=== PATIENT | female | born 1965 | race Two or more races ===

== ENCOUNTER 2025-05-08 17:53 | Inpatient (IN) | payer OTHER ==
[~2025-05-08] VITALS: Ht 149.9 cm; Wt 45.5 kg
--- NOTE | 2025-05-08 18:30 | ECG ---
[facility] Test Date: 2025-05-08 Test Time: 17:58:09 Pat Name: EDWARD ART Department: Room: 0271T Gender: F Industrial Relations Analyst: DUSTY : 1965 Requested By: ARIANA NEGRO Order Number: [id number] Reading MD: Jorge Aden Measurements Intervals [place] Rate: 83 P: 42 CT: 141 QRS: 72 QRSD: 82 T: 62 QT: 400 QTc: 470 Interpretive Statements Sinus rhythm Electronically Signed On 05-11-2025 9:42:17 PDT by Jorge Aden Please click the below link to view image of tracing.
--- NOTE | 2025-05-08 18:45 | DVH ---
CHEST RADIOGRAPH Indication: cp Technique: Single frontal view of the chest was obtained COMPARISON: None FINDINGS: Lines and Tubes: None Lungs: Clear Pleura: No effusion. No pneumothorax. Cardiomediastinal contours: Unremarkable Bones: Scoliosis IMPRESSION: No acute disease.
[2025-05-08 18:50] LABS: Hematocrit 30.9 % (36.0-46.0); Hemoglobin 10.1 g/dL (12.2-16.2); Mean Corpuscular Hemoglobin 28.4 pg (28.0-32.0); Mean Corpuscular Volume 87.0 fL (80.0-100.0); Nucleated Red Blood Cells % 0.0 %
[2025-05-08 19:10] LABS: Albumin 4.1 g/dL (3.2-4.8); Alkaline Phosphatase 73 U/L (46-116); Anion Gap 9 (5-15); BUN/Creatinine Ratio 19.8 (10.0-20.0); Blood Urea Nitrogen 16 mg/dL (9-23); Calcium 9.1 mg/dL (8.7-10.4); Carbon Dioxide 26 mmol/L (20-31); Chloride 106 mmol/L (98-107); Potassium 4.2 mmol/L (3.5-5.1); Sodium 141 mmol/L (136-145); Total Protein 6.9 g/dL (5.7-8.2)
[2025-05-08 19:11] LABS: Alanine Aminotransferase 9 U/L (7-40); Bilirubin, Total 0.2 mg/dL (0.2-1.0); Glucose 109 mg/dL (74-106)
--- NOTE | 2025-05-08 20:40 | ECG ---
[facility] Test Date: 2025-05-08 Test Time: 20:38:39 Pat Name: EDWARD ART Department: [facility] ED Patient ID: [id number] Room: 0271T Gender: F First Aid Trainer: eboni : 1965 Requested By: ARIANA NEGRO Order Number: [id number] Reading MD: Jorge Aden Measurements Intervals [place] Rate: 73 P: 82 RI: 140 QRS: 76 QRSD: 81 T: 67 QT: 414 QTc: 457 Interpretive Statements Sinus rhythm Probable anteroseptal infarct, old Electronically Signed On 05-11-2025 9:43:00 PDT by Jorge Aden Please click the below link to view image of tracing.
--- NOTE | 2025-05-09 07:52 | ED.PDOC ---
HPI Comments 59 year old female presents to the ED via EMS with a chief complaint of chest pain onset 4 days. Patient states she has been experiencing chest pain for the past 4 days. Patient believes she might be going through ETOH withdraws, last drink was about 4 days ago. PMHx MS, HTN. Denies shortness of breath, dizziness, fever, chills, headache, blurred vision, numbness/tingling. No other symptoms or modifying factors present at this time. Chief Complaint: Chest Pain Time Seen by MD: 07:40 Reviewed Notes: Medications, Allergies Allergies: Coded Allergies: NO KNOWN ALLERGIES (Unverified , 05/08/25) Information Source: Patient, Emergency Med Personnel Mode of Arrival: EMS Severity: Moderate Timing: Days Duration: Since onset Prehospital treatment: None Location: Chest (L) Radiation: No Radiation Quality: Sharp Onset: At Rest Cardiac Risk Factors: HTN PE Risk Factors: None History of: None Modifying Factors: Nothing Past Medical History PAST MEDICAL HISTORY: HTN Past Medical History (Other): MS Surgical History: Denies all surgeries DIRECTOR OF CONVENTION SERVICES History: No Pertinent DIRECTOR OF CONVENTION SERVICES History Family History Family History: Reviewed,noncontributory to illness, No family hx of Cancer, No family hx of DM, No family hx of Heart radha, No family hx of HTN, No family hx ofKidney radha, No family hx of Liver radha, No family hx of Lung radha, No family hx of Stroke Social History Smoker: Non-Smoker Alcohol: Heavy Drugs: Denies Drug Use Lives In: Home Constitutional: denies: chills, diaphoresis, fatigue, fever, malaise, sweats, weakness, others EENTM: denies: blurred vision, double vision, ear bleeding, ear discharge, ear drainage, ear pain, ear ringing, eye pain, eye redness, hearing loss, mouth pain, mouth swelling, nasal discharge, nose bleeding, nose congestion, nose pain, photophobia, tearing, throat pain, throat swelling, voice changes, others Respiratory: denies: cough, hemoptysis, orthopnea, SOB at rest, shortness of breath, SOB with excertion, stridor, wheezing, others Cardiovascular: reports: chest pain; denies: dizzy spells, diaphoresis, Dyspnea on exertion, edema, irregular heart beat, left arm pain, lightheadedness, palpitations, PND, syncope, others Gastrointestinal: denies: abdomen distended, abdominal pain, blood streaked bowels, constipated, diarrhea, dysphagia, difficulty swallowing, hematemesis, melena, nausea, poor appetite, poor fluid intake, rectal bleeding, rectal pain, vomiting, others Genitourinary: denies: abnormal vagina bleeding, burning, dyspareunia, dysuria, flank pain, frequency, hematuria, incontinence, pain, , vagina discharge, urgency, others Neurological: denies: dizziness, fainting, headache, left sided numbness, left sided weakness, numbness, paresthesia, pre-existing deficit, right sided numbness, right sided weakness, seizure, speech problems, tingling, tremors, weakness, others Musculoskeletal: denies: back pain, gout, joint pain, joint swelling, muscle pain, muscle stiffness, neck pain, others Integumetry: denies: bruises, change in color, change in hair/nails, dryness, laceration, lesions, lumps, rash, wounds, others Allergic/Immunocompromised: denies: Difficulty Healing, Frequent Infections, Hives, Itching, others Hematologic/Lymphatic: denies: anemia, blood clots, easy bleeding, easy bruising, swollen glands, others Endocrine: denies: excessive hunger, excessive sweating, excessive thirst, excessive urination, flushing, intolerance to cold, intolerance to heat, unexplained weight gain, unexplained weight loss, others Psychiatric: denies: anxiety, bipolar disorder, depression, hopeless, panic disorder, schizophrenia, sleepless, suicidal, others All Other Systems: Reviewed and Negative Physical Exam General Appearance: Moderate Distress, Thin HEENT: Normal ENT Inspection, Pharynx Normal, TMs Normal Neck: Full Range of Motion, Non-Tender, Normal, Normal Inspection Respiratory: Chest Non-Tender, Lungs Clear, No Accessory Muscle Use, No Respiratory Distress, Normal Breath Sounds Cardiovascular: No Edema, No JVD, No Murmur, No Gallop, Normal Peripheral Pulses, Regular Rate/Rhythm Breast Exam: Deferred Gastrointestinal: No Organomegaly, Non Tender, No Pulsatile Mass, Normal Bowel Sounds, Soft Genitalia: Deferred Pelvic: Deferred Rectal: Deferred Extremities: No calf tenderness, Normal capillary refill, Normal range of motion, Non-tender, No pedal edema Musculoskeletal : Apperance: Normal Neurologic: Alert, label paster II-XII nml as Tested, No Motor Deficits, Normal Affect, Normal Mood, No Sensory Deficits Cerebellar Function: NOT DONE Reflexes: NOT DONE Skin: Dry, Normal Color, Warm Peripheral Pulses: 3+ Radial (R), 3+ Radial (L) Lymphatic: No Adenopathy Was a procedure done? Was a procedure done?: No CP Differential Dx Differential Diagnosis: A-fib, A-Flutter, Angina, Anxiety / Panic Attack, Atrial Dysrhythmia, Electrolyte Disorder X-Ray, Labs, Meds, VS Vital Signs Date Time Temp Pulse Resp B/P (MAP) Pulse Ox O2 Delivery O2 Flow Rate FiO2 05/08/25 20:38 73 05/08/25 18:04 97.7 81 18 145/91 97.7 05/08/25 17:58 83 Lab Test 05/08/25 19:14 05/08/25 18:30 Range/Units Troponin I High Sensitivity 6 7 </=34 ng/L White Blood Count 7.5 4.4-10.8 10^3/uL Red Blood Count 3.55 L 4.0-5.20 10^6/uL Hemoglobin 10.1 L 12.2-16.2 g/dL Hematocrit 30.9 L 36.0-46.0 % Mean Corpuscular Volume 87.0 80.0-100.0 fL Mean Corpuscular Hemoglobin 28.4 28.0-32.0 pg Mean Corpuscular Hemoglobin Concent 32.6 32.0-36.0 g/dL Red Cell Distribution Width 17.4 H 11.8-14.3 % Platelet Count 416 140-450 10^3/uL Mean Platelet Volume 9.1 6.9-10.8 fL Neutrophils (%) (Auto) 67.9 37.0-80.0 % Lymphocytes (%) (Auto) 19.2 10.0-50.0 % Monocytes (%) (Auto) 10.4 0.0-12.0 % Eosinophils (%) (Auto) 1.9 0.0-7.0 % Basophils (%) (Auto) 0.6 0.0-2.0 % Neutrophils # (Auto) 5.1 1.6-8.6 10 ^3/uL Lymphocytes # (Auto) 1.4 0.4-5.4 10 ^3/uL Monocytes # (Auto) 0.8 0-1.3 10 ^3/uL Eosinophils # (Auto) 0.1 0-0.8 10 ^3/uL Basophils # (Auto) 0 0-0.2 10 ^3/uL Nucleated Red Blood Cells 0.0 % Sodium Level 141 136-145 mmol/L Potassium Level 4.2 3.5-5.1 mmol/L Chloride Level 106 98-107 mmol/L Carbon Dioxide Level 26 20-31 mmol/L Anion Gap 9 5-15 Blood Urea Nitrogen 16 9-23 mg/dL Creatinine 0.81 0.550-1.02 mg/dL Glomerular Filtration Rate Calc 84 >90 mL/min BUN/Creatinine Ratio 19.8 10.0-20.0 Serum Glucose 109 H 74-106 mg/dL Calcium Level 9.1 8.7-10.4 mg/dL Total Bilirubin 0.2 0.2-1.0 mg/dL Aspartate Amino Transferase (AST) 23 13-40 U/L Alanine Aminotransferase (ALT) 9 7-40 U/L Alkaline Phosphatase 73 46-116 U/L B-Type Natriuretic Peptide 69.66 0-100 pg/mL Total Protein 6.9 5.7-8.2 g/dL Albumin 4.1 3.2-4.8 g/dL [place] [id number] Ph: [phone] DIAGNOSTIC IMAGING Diagnostic Imaging Report : [id number] Signed PATIENT: EDWARD ART ACCT: [id number] UNIT: [id number] : 1965 LOC: ER ROOM / BED: / AGE / SEX: 59 / F ADM STATUS: REG ER SERVICE 04 ORDERING PHYSICIAN: ARIANA COLLIER MD PROCEDURE(s): CXRP - CHEST PORTABLE REASON: cp ORDER NUMBER(s): [id number], ACCESSION NUMBER(s): [id number] CHEST RADIOGRAPH Indication: cp Technique: Single frontal view of the chest was obtained COMPARISON: None FINDINGS: Lines and Tubes: None Lungs: Clear Pleura: No effusion. No pneumothorax. Cardiomediastinal contours: Unremarkable Bones: Scoliosis IMPRESSION: No acute disease. ATED BY: BRODERICK MORAELS MD DICTATED DATE/TIME: 05/08/251842 SIGNED BY: BRODERICK MORALES MD SIGNED DATE/TIME: 05/08/251842 CC: Patient alert. Complaining of chest pain. Vitals stable. Answering questions. Chest x-ray reviewed does not show any acute process. Was given aspirin. Was given nitro. She continues to have chest pain. Explained to the patient. Continue monitoring. Time of 1ST Reevaluation: 08:10 Reevaluation 1ST: Unchanged Patient Education/Counseling: Diagnosis, Treatment, Prognosis Family Education/Counseling: No Family Present SEPSIS Sepsis Screen Date sepsis recognized/suspect: May 08, 2025 Time Sepsis recognized/suspect: 1800 Recent Procedure: No On Antibiotic Therapy: No Respiratory Rate >20: No Heart Rate >90: No Temp<36 C (96.8 F) or >38.3 C: No SBP <90 or MAP <65 mmHG: No New Acute Mental Status Change: No Is the patient on CPAP, BIPAP,: No Physician Orders Chest Portable (05/08/25 18:05) Electrocardigram (05/08/25 21:05) Vital Signs Date Time Temp Pulse Resp B/P (MAP) Pulse Ox O2 Delivery O2 Flow Rate FiO2 05/08/25 20:38 73 05/08/25 18:04 97.7 81 18 145/91 97.7 05/08/25 17:58 83 Laboratory Tests Test 05/08/25 18:30 White Blood Count 7.5 10^3/uL (4.4-10.8) Departure 1 Departure Time of Disposition: 07:55 Impression: Primary Impression: Chest pain of unknown etiology Disposition: ADMITTED INPATIENT Admit to: Med Surg Condition: Guarded Critical Care Note Critical Care Time?: No Stability Stability form required: No Heart Score Heart Score: Heart Score Response (Comments) Value History Slightly Suspicious 0 EKG Normal 0 Age 45-64 1 Risk Factors >3 or Hx ASHD 2 Troponin Normal limit 0 Total 3 I personally scribed for COSTA SZYMANSKI MD ([email or web address]) on 05/09/25 at 07:52. Electronically submitted by Kasia Elizabeth ([email or web address]). COSTA SZYMANSKI MD May 09, 2025 07:52
[2025-05-09] MEDS ORDERED: DOCUSATE SOD 100 MG CAP PO PRN (09:45)
[2025-05-09] MEDS ORDERED: NITROGLYCERIN 0.4 MG SL TAB SL PRN (09:45)
[2025-05-09] MEDS ORDERED: MORPHINE SULFATE INJ 2 MG/ml SYRG IV PRN ×2 (09:45)
[2025-05-09] MEDS: NITROGLYCERIN 0.4 MG SL TAB SL ONE ×2 (09:55→09:56)
[2025-05-09 10:19] LABS: Hematocrit 34.4 % (36.0-46.0); Hemoglobin 11.0 g/dL (12.2-16.2); Mean Corpuscular Hemoglobin 28.1 pg (28.0-32.0); Mean Corpuscular Volume 88.1 fL (80.0-100.0); Nucleated Red Blood Cells % 0.0 %
[2025-05-09 10:23] LABS: Chloride 105 mmol/L (98-107); Potassium 4.3 mmol/L (3.5-5.1); Sodium 139 mmol/L (136-145)
[2025-05-09 10:24] LABS: Anion Gap 8 (5-15); Calcium 9.4 mg/dL (8.7-10.4); Carbon Dioxide 26 mmol/L (20-31)
[2025-05-09 10:29] LABS: Triglycerides 75 mg/dL (< 150)
[2025-05-09 10:30] LABS: BUN/Creatinine Ratio 15.8 (10.0-20.0); Blood Urea Nitrogen 12 mg/dL (9-23)
[2025-05-09] MEDS: hydrALAZINE HCL 20 MG/ML VL IV ONE (10:30)
[2025-05-09 10:31] LABS: Cholesterol 173 mg/dL (< 200)
--- NOTE | 2025-05-09 10:33 | DVHHPRES ---
History of Present Illness Resident Creating Document: ARTHUR BERMUDEZ RESIDENT History of Present Illness Alondra Chisholm is a 59-year-old female with past medical history of hypertension. The patient came to the ED with chief complain of 4 days of intermittent substernal chest pain, 5/10, pressure-like, that improves with rest and leaning forward; irradiated to both arms, associated with fatigue. The patient also reports she has been drinking for the past month approximate 1 L of alcohol beverage, but stopped 4 days ago due to the chest pain, 1 day ago she started feeling shivery and headache 03/03. Yesterday, the chest pain increase on intensity 03/03, this prompt her visit to the ED. The patient denies fever, chills, abdominal pain, nausea or vomit. On the ED the patient was giving nitroglycerin SL and the chest pain improved /. The patient will be admitted for further assessment and management. Please note: The patient is from [facility], she mistakenly took the wrong bus to [facility], she wants to communicate with family, a social consult was placed. Cardiovascular: HTN Past Surgical History: Other (Gastric by pass. ) Family History: None Smoke: <1 pack per day ALCOHOL: heavy (The patient reports she drinks approximate 175ml per day since 10 years ago. ) Drugs: Marijuana, Other (The patient reports she uses others drugs sometimes when she drinks. ) Lives: Friends Review of Systems Constitutional: No: Fever, Chills, Sweats, Weakness, Malaise, Other Eyes: No: Pain, Vision change, Conjunctivae inflammation, Eyelid inflammation, Other, Redness ENT: No: Ear pain, Ear discharge, Nose pain, Nose discharge, Nose congestion, Mouth pain, Mouth swelling, Throat pain, Throat swelling, Other Respiratory: No: Cough, Dry, Shortness of breath, SOB with excertion, Wheezing, Hemoptysis, Pleuritic Pain, Sputum, Wheezing, Other Cardiovascular: Chest Pain; No: Palpitations, Orthopnea, Paroxysmal Noc. Dyspnea, Edema, Lt Headedness, Other Gastrointestinal: Constipation; No: Nausea, Vomiting, Abdominal Pain, Diarrhea, Melena, Hematochezia, Other Genitourinary: No Dysuria, No Frequency, No Incontinence, No Hematuria, No Retention, No Other Musculoskeletal: No: other, neck pain, shoulder pain, arm pain, back pain, hand pain, leg pain, foot pain Skin: No: Rash, Lesions, Jaundice, Bruising, Other Neurological: Other (Anxiety, tremor); No: Weakness, Numbness, Incoordination, Change in speech, Confusion, Seizures Allergies: Coded Allergies: NO KNOWN ALLERGIES (Unverified , 05/08/25) Medications Current Medications Medications Dose Ordered Sig/Radha Route Start Time Stop Time Status Last Admin Dose Admin Docusate Sodium 100 mg BIDPRN PRN PO 05/09/25 09:45 UNV Acetaminophen/ Hydrocodone Bitart 1 tab Q4HP PRN PO 05/09/25 09:45 UNV Exam Vital Signs Vital Signs Date Time Temp Pulse Resp B/P (MAP) Pulse Ox O2 Delivery O2 Flow Rate FiO2 05/09/25 09:47 86 18 100 Room Air 05/09/25 09:47 98.7 180/87 (118) 98.7 General Appearance: Alert, Oriented X3, Cooperative, No acute distress HEENT: Atraumatic, PERRLA Respiratory: Clear to auscultation, Normal air movement Cardiovascular: Regular rate, Normal S1, Normal S2 Abdominal: Normal bowel sounds, Soft, No tenderness, No masses Extremities: No clubbing, No cyanosis, No edema, Normal pulses, No tenderness/swelling Skin: No rashes, No breakdown, No significant lesion Neuro: Normal speech, Strength at 5/5 X4 ext, Normal tone, Sensation intact Psych/Mental Status: Mental status NL, Other (Anxious) Labs/Xrays Labs Test 05/08/25 19:14 05/08/25 18:30 Range/Units Troponin I High Sensitivity 6 </=34 ng/L White Blood Count 7.5 4.4-10.8 10^3/uL Red Blood Count 3.55 L 4.0-5.20 10^6/uL Hemoglobin 10.1 L 12.2-16.2 g/dL Hematocrit 30.9 L 36.0-46.0 % Mean Corpuscular Volume 87.0 80.0-100.0 fL Mean Corpuscular Hemoglobin 28.4 28.0-32.0 pg Mean Corpuscular Hemoglobin Concent 32.6 32.0-36.0 g/dL Red Cell Distribution Width 17.4 H 11.8-14.3 % Platelet Count 416 140-450 10^3/uL Mean Platelet Volume 9.1 6.9-10.8 fL Neutrophils (%) (Auto) 67.9 37.0-80.0 % Lymphocytes (%) (Auto) 19.2 10.0-50.0 % Monocytes (%) (Auto) 10.4 0.0-12.0 % Eosinophils (%) (Auto) 1.9 0.0-7.0 % Basophils (%) (Auto) 0.6 0.0-2.0 % Neutrophils # (Auto) 5.1 1.6-8.6 10 ^3/uL Lymphocytes # (Auto) 1.4 0.4-5.4 10 ^3/uL Monocytes # (Auto) 0.8 0-1.3 10 ^3/uL Eosinophils # (Auto) 0.1 0-0.8 10 ^3/uL Basophils # (Auto) 0 0-0.2 10 ^3/uL Nucleated Red Blood Cells 0.0 % Sodium Level 141 136-145 mmol/L Potassium Level 4.2 3.5-5.1 mmol/L Chloride Level 106 98-107 mmol/L Carbon Dioxide Level 26 20-31 mmol/L Anion Gap 9 5-15 Blood Urea Nitrogen 16 9-23 mg/dL Creatinine 0.81 0.550-1.02 mg/dL Glomerular Filtration Rate Calc 84 >90 mL/min BUN/Creatinine Ratio 19.8 10.0-20.0 Serum Glucose 109 H 74-106 mg/dL Calcium Level 9.1 8.7-10.4 mg/dL Total Bilirubin 0.2 0.2-1.0 mg/dL Aspartate Amino Transferase (AST) 23 13-40 U/L Alanine Aminotransferase (ALT) 9 7-40 U/L Alkaline Phosphatase 73 46-116 U/L B-Type Natriuretic Peptide 69.66 0-100 pg/mL Total Protein 6.9 5.7-8.2 g/dL Albumin 4.1 3.2-4.8 g/dL SEPSIS Sepsis Screen Date sepsis recognized/suspect: May 08, 2025 Time Sepsis recognized/suspect: 1800 Recent Procedure: No On Antibiotic Therapy: No Respiratory Rate >20: No Heart Rate >90: No Temp<36 C (96.8 F) or >38.3 C: No SBP <90 or MAP <65 mmHG: No New Acute Mental Status Change: No Is the patient on CPAP, BIPAP,: No Physician Orders Admit (05/09/25 09:36) Code Status (05/09/25:36) Vital Signs .PER UNIT PROTOCOL (05/09/25:36) Review Orders With Adm. (05/09/25 09:36) Bedside Commode (05/09/25 09:36) Docusate Sodium Capsule (Colace Capsule) (05/09/25 09:45) Notify Md Of Changes From Base (05/09/25 09:36) Advance Directive (05/09/25:36) Basic Metabolic Panel (05/09/25:36) Urinalysis (05/09/25:36) Complete Blood Count (05/09/25:36) Lipid Panel (05/09/25:36) Patient Condition (05/09/25 09:36) Allergies (05/09/25 09:36) Hydrocodone-Acet 5/325mg Tab ([place] 5/32 (05/09/25 09:45) Drug Screen (05/09/25 09:36) Morphine Sulfate Injection (05/09/25 09:45) Nitroglycerin Sublingual (Ntrostat Subli (05/09/25 09:45) Morphine Sulfate Injection (05/09/25 09:45) Stat Ekg For Chest Pain (05/09/25 09:36) Notify Md Of Changes From Base (05/09/25 09:36) Burring Machine Operator For 24 Hours (05/09/25 09:36) Rhythm Strips Once Every Shift (05/09/25 09:36) Banana Bag D5w (05/09/25 18:00) Cardiac Diet-2gna,Lofat,Lochol (05/09/25 Lunch) Sequential Compression Device (05/09/25 09:36) * Environmental Management Specialist Consult (05/09/25 ) Vital Signs Date Time Temp Pulse Resp B/P (MAP) Pulse Ox O2 Delivery O2 Flow Rate FiO2 05/09/25 09:47 86 18 100 Room Air 05/09/25 09:47 98.7 86 17 180/87 (118) 100 98.7 Assessment/Plan Assessment/Plan #Chest pain, rule out ACS EKG Chest X-ray Ap portable Troponins BNP, CBC, CMP, TSH, lipid panel. Morphine 2mg IV Aspirin 325mg po once, then: aspirin 81mg po qd Nitroglycerin 0.4 mg (SL Q5min prn for chest pain) Admit Telemetry Cardiac Consult Cardiac diet #Alcohol withdrawal syndrome CIWAS score 5 Banana bag, affter complition follow with Thiamine po and folic acid po. UDS #Hypertensive urgency Hydralazine 10mg IV #Essential hypertension Lisinopril 40mg po qd Amlodipine 5mg po qd #Polysubstance use disorder. Counseling about cessation. #Smoker < 10 cigarettes per day. Counseling about cessation >10min Cardiac diet DVT prophylaxis- ambulating. PUD prophylaxis Protonics. Goals of care discussed with the patient > 35 min. Discussed plan of care with Dr. Briggs Code status: Full code PCP: Dr. Lemos ( [facility]) Plan discussed with: Patient, the patient agrees with the admission plan. Plan discussed with: Patient My Orders Orders - ARTHUR BERMUDEZ RESIDENT Procedure Category Date Status Time Admit ADMIT 05/09/25 Transmitted 09:36 Code Status CODE 05/09/25 Transmitted 09:36 Vital Signs [facility] 05/09/25 In Process 09:36 Review Orders With [facility] 05/09/25 In Process Adm. 09:36 Bedside Commode [facility] 05/09/25 In Process 09:36 Docusate Sodium [facility] 05/09/25 Logged Capsule (Colace 09:45 Notify Md Of Changes [facility] 05/09/25 In Process From Base 09:36 Advance Directive [facility] 05/09/25 In Process 09:36 Basic Metabolic Panel LAB 05/09/25 Logged 09:36 Urinalysis LAB 05/09/25 Logged 09:36 Complete Blood Count LAB 05/09/25 Logged 09:36 Lipid Panel LAB 05/09/25 Logged 09:36 Patient Condition ORDERS 05/09/25 Transmitted 09:36 Allergies [facility] 05/09/25 In Process 09:36 Hydrocodone-Acet [facility] 05/09/25 Logged 5/325mg Tab ([place] 09:45 Drug Screen LAB 05/09/25 Logged 09:36 Morphine Sulfate [facility] 05/09/25 Logged Injection 09:45 Nitroglycerin [facility] 05/09/25 Logged Sublingual (Ntrostat 09:45 Morphine Sulfate [facility] 05/09/25 Transmitted Injection 09:45 Stat Ekg For Chest [facility] 05/09/25 In Process Pain 09:36 Notify Md Of Changes SHARIF 05/09/25 In Process From Base 09:36 Burring Machine Operator For [facility] 05/09/25 In Process 24 Hours 09:36 Rhythm Strips Once [facility] 05/09/25 In Process Every Shift 09:36 Banana Bag D5w PHA 05/09/25 Transmitted 18:00 Cardiac DIET 05/09/25 Transmitted Diet-2gna,Lofat,Lochol Lunch Sequential [facility] 05/09/25 In Process Compression Device 09:36 * Environmental Management Specialist CONS 05/09/25 Transmitted Consult Date of Service: May 09, 2025 Billing Provider: THOMAS BRIGGS MD Common Visit Codes: 14851-ERNAXMP INP/OBS CARE (HIGH) Secondary Visit Codes: 58287-[id number] CHNG SMOKING >10MIN, [id number] CARE PLAN 30 MINUTES ARTHUR BERMUDEZ RESIDENT May 09, 2025 10:33
[2025-05-09 11:09] LABS: Glucose 136 mg/dL (74-106); HDL Cholesterol 66 mg/dL (40-59)
[2025-05-09 13:30] VITALS: BP 157/96; PULSE 75; RESP 18; TEMP 97.3; O2SAT 100
--- NOTE | 2025-05-09 13:51 | DVHCONRES ---
Date Seen: May 09, 2025 Resident Creating Document: JOSIE GALLARDO RESIDENT Referring Physician ARTHUR BERMUDEZ RESIDENT Reason for Consultation Unstable angina History of Present Illness 59-year-old female presented to the ED with substernal chest pain (5/10), radiating to both arms, improving with rest and leaning forward. She has a history of heavy alcohol use (?1 L/day for past month, stopped 4 days ago) and subsequently developed shivering, tremors, headache (7/10), and anxiety, consistent with alcohol withdrawal. Pain intensity increased to 7/10 but improved with sublingual nitroglycerin. Currently pain-free in ED. No history of CAD, stents, or cardiac surgeries. Family history significant for stroke and myocardial infarction in mother. Brief Progress Summary * Chest pain has resolved in the ED with nitroglycerin. * Serial troponins negative (7 ? 6 ng/L, within normal). * BNP 69 pg/mL not suggestive of decompensated heart failure. * CXR: No acute cardiopulmonary process. * EKGs: Two tracings both show sinus rhythm, One EKG notes possible old anteroseptal infarct, but no acute ischemic changes. * Labs: Electrolytes normal; Cr 0.76, GFR 91. Hb 11.0 (mild anemia). Lipids: LDL 101, HDL 66 (high, protective). HbA1c 5.8. * Assessment: No objective evidence of acute coronary syndrome. Symptoms are most consistent with alcohol withdrawal/anxiety-related chest pain. Past Medical History Hypertension, alcohol use disorder. Past Surgical History Gastric bypass. No cardiac surgeries or interventions. Social History Heavy alcohol use (stopped 4 days ago), <1 pack/day smoking, occasional marijuana use. Allergies: Coded Allergies: NO KNOWN ALLERGIES (Unverified , 05/08/25) Current Medications Current Medications Medications (Trade) Dose Ordered Sig/Radha Route PRN Reason Start Time Stop Time Status Last Admin Docusate Sodium (Colace Capsule) 100 mg BIDPRN PRN PO FOR CONSTIPATION 05/09/25 09:45 Acetaminophen/ Hydrocodone Bitart ([place] 5/325MG Tab) 1 tab Q4HP PRN PO MODERATE PAIN (4-6 PAIN SCALE) 05/09/25 09:45 Morphine Sulfate 2 mg Q4HPRN PRN IV SEVERE PAIN (7-10 PAIN SCALE) 05/09/25 09:45 Nitroglycerin (Ntrostat Sublingual) 0.4 mg Q5MINP PRN SL FOR CHEST PAIN 05/09/25 09:45 Morphine Sulfate 2 mg Q30M PRN IV FOR CHEST PAIN 05/09/25 09:45 Folic Acid 1 mg/ Multivitamins 10 ml/Magnesium Sulfate 8 meq/ Thiamine HCl 100 mg/Dextrose 1,013.2 ml @ 125.001 mls/hr DAILY@1800 INJ 05/09/25 18:00 Amlodipine Besylate (Norvasc Tablet) 5 mg DAILY PO 05/10/25 10:00 Lisinopril (Zestril Tablet) 40 mg DAILY PO 05/10/25 10:00 Pantoprazole Sodium (Protonix Tablet) 40 mg DAILY PO 05/10/25 10:00 Aspirin 81 mg DAILY PO 05/10/25 10:00 Review of Systems * Positive: Chest pain (resolved), palpitations/anxiety during withdrawal. * Negative: Dyspnea, orthopnea, PND, edema, syncope, dizziness. Vital Signs Vital Signs Date Time Temp Pulse Resp B/P (MAP) Pulse Ox O2 Delivery O2 Flow Rate FiO2 05/09/25 10:36 160/82 05/09/25 09:47 86 18 100 Room Air 05/09/25 09:47 98.7 98.7 Physical Exam * General: Anxious but alert, no acute distress. * Vital signs: Stable. * CV: Regular rate and rhythm, normal S1/S2, no murmurs/rubs/gallops. No JVD, no peripheral edema. * Resp: Clear breath sounds bilaterally. * Extremities: No cyanosis, clubbing, or edema Labs/Diagnostic Data Labs Test 05/09/25 09:55 05/08/25 19:14 05/08/25 18:30 Range/Units White Blood Count 5.9 4.4-10.8 10^3/uL Red Blood Count 3.90 L 4.0-5.20 10^6/uL Hemoglobin 11.0 L 12.2-16.2 g/dL Hematocrit 34.4 #L 36.0-46.0 % Mean Corpuscular Volume 88.1 80.0-100.0 fL Mean Corpuscular Hemoglobin 28.1 28.0-32.0 pg Mean Corpuscular Hemoglobin Concent 31.9 L 32.0-36.0 g/dL Red Cell Distribution Width 18.4 H 11.8-14.3 % Platelet Count 423 140-450 10^3/uL Mean Platelet Volume 9.0 6.9-10.8 fL Neutrophils (%) (Auto) 71.4 37.0-80.0 % Lymphocytes (%) (Auto) 16.0 10.0-50.0 % Monocytes (%) (Auto) 10.5 0.0-12.0 % Eosinophils (%) (Auto) 1.4 0.0-7.0 % Basophils (%) (Auto) 0.7 0.0-2.0 % Neutrophils # (Auto) 4.2 1.6-8.6 10 ^3/uL Lymphocytes # (Auto) 1.0 0.4-5.4 10 ^3/uL Monocytes # (Auto) 0.6 0-1.3 10 ^3/uL Eosinophils # (Auto) 0.1 0-0.8 10 ^3/uL Basophils # (Auto) 0 0-0.2 10 ^3/uL Nucleated Red Blood Cells 0.0 % Sodium Level 139 136-145 mmol/L Potassium Level 4.3 3.5-5.1 mmol/L Chloride Level 105 98-107 mmol/L Carbon Dioxide Level 26 20-31 mmol/L Anion Gap 8 5-15 Blood Urea Nitrogen 12 9-23 mg/dL Creatinine 0.76 0.550-1.02 mg/dL Glomerular Filtration Rate Calc 91 >90 mL/min BUN/Creatinine Ratio 15.8 10.0-20.0 Serum Glucose 136 H 74-106 mg/dL Hemoglobin A1c 5.8 H <5.7 % A1C Calcium Level 9.4 8.7-10.4 mg/dL Triglycerides Level 75 < 150 mg/dL Cholesterol Level 173 < 200 mg/dL LDL Cholesterol 101 H < 100 mg/dL HDL Cholesterol 66 H 40-59 mg/dL Thyroid Stimulating Hormone (TSH) 1.42 0.55-4.78 uIU/mL Troponin I High Sensitivity 6 </=34 ng/L Total Bilirubin 0.2 0.2-1.0 mg/dL Aspartate Amino Transferase (AST) 23 13-40 U/L Alanine Aminotransferase (ALT) 9 7-40 U/L Alkaline Phosphatase 73 46-116 U/L B-Type Natriuretic Peptide 69.66 0-100 pg/mL Total Protein 6.9 5.7-8.2 g/dL Albumin 4.1 3.2-4.8 g/dL Assessment 1. Chest Pain resolved * Likely secondary to alcohol withdrawal/anxiety. * ACS ruled out: negative serial troponins, EKG without acute ischemia, normal BNP. * CXR normal, no signs of heart failure. * Low-intermediate risk by HEART score. 2. 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 3. Hypertension controlled on current regimen. 4. Mild anemia (Hgb 11.0) not cardiogenic but relevant to overall risk profile. Plan/Recommendation Plan Cardiovascular * No evidence of ACS. ordered an echo. * Continue home antihypertensives (amlodipine, lisinopril) and ASA 81 mg. * Recommend outpatient stress testing i * Maintain K > 4.0, Mg > 2.0 given QTc borderline prolonged (470 ms). Neurology/Psych (withdrawal-related chest pain) * Supportive management for alcohol withdrawal per primary team (CIWA protocol, benzodiazepines as indicated). Hematology * Mild anemia monitor, but no cardiology intervention at this time. Preventive / Risk Modification * Bacteriology Teacher regarding alcohol cessation and tobacco cessation. * Recommend lipid optimization Final Impression * Chest pain likely secondary to anxiety and alcohol withdrawal. * ACS ruled out with negative troponins, normal BNP, stable EKGs, and normal CXR . Case discussed in detail with the attending physician, including the clinical presentation, diagnostic workup, and comprehensive management plan. The patient was present for the discussion and demonstrated understanding of her condition and the proposed plan. Plan discussed with: Patient Visit Coding Cardiology RES Date of Service: May 09, 2025 Billing Provider: JAYMIE CHONG MD Cardiology Common Codes: [id number] INP/OBS CARE (High) JOSIE GALLARDO RESIDENT May 09, 2025 13:51
[2025-05-09] MEDS ORDERED: FURO20TA3 PO (14:18)
[2025-05-09] MEDS ORDERED: OMEP-448 (14:18)
[2025-05-09] MEDS ORDERED: AMLO1TAB22 PO (14:18)
[2025-05-09] MEDS ORDERED: LISI40TA16 PO (14:18)
[2025-05-09 18:47] VITALS: BP 144/90; PULSE 94; TEMP 98.5; O2SAT 97
[2025-05-09 21:00] VITALS: BP 145/85; PULSE 78; RESP 14; TEMP 97.5; O2SAT 99
[2025-05-09 23:23] LABS: Urine Protein, UAD Negative (Negative)
[2025-05-09 23:32] LABS: Cannabinoid Screen, Urine Neg (NEGATIVE); Phencyclidine Screen, Urine Pos (NEGATIVE)
[2025-05-09 23:35] LABS: Amphetamine Screen, Urine Neg (NEGATIVE); Barbiturate Scree,Urine Neg (NEGATIVE); Benzodiazephine Screen, Urine Pos (NEGATIVE); Cocaine Screen, Urine Neg (NEGATIVE); Opiate Scree,Urine Neg (NEGATIVE)
[2025-05-10] VITALS (9 sets, daily range): BP systolic 111–153; BP diastolic 64–92; PULSE 70–90; RESP 17–20; TEMP 97.4–97.9; O2SAT 98–100
[2025-05-10] MEDS: FOLIC ACID 1 MG, MULTIPLE VITAMIN 10 ML, MAGNESIUM SULF SDV 50% 8 MEQ, THIAMINE INJ 100... INJ SCH (00:02)
[2025-05-10 06:10] LABS: Hematocrit 30.8 % (36.0-46.0); Hemoglobin 10.0 g/dL (12.2-16.2); Mean Corpuscular Hemoglobin 28.2 pg (28.0-32.0); Mean Corpuscular Volume 86.6 fL (80.0-100.0); Nucleated Red Blood Cells % 0.1 %
[2025-05-10 06:23] LABS: Alkaline Phosphatase 64 U/L (46-116); Anion Gap 10 (5-15); Calcium 8.7 mg/dL (8.7-10.4); Carbon Dioxide 25 mmol/L (20-31); Chloride 105 mmol/L (98-107); Glucose 90 mg/dL (74-106); Potassium 4.5 mmol/L (3.5-5.1); Sodium 140 mmol/L (136-145)
[2025-05-10 06:24] LABS: BUN/Creatinine Ratio 16.9 (10.0-20.0); Blood Urea Nitrogen 15 mg/dL (9-23); Total Protein 6.4 g/dL (5.7-8.2)
[2025-05-10 06:25] LABS: Albumin 3.8 g/dL (3.2-4.8)
[2025-05-10 06:29] LABS: Alanine Aminotransferase < 9 U/L (7-40); Bilirubin, Total 0.3 mg/dL (0.2-1.0)
[2025-05-10] MEDS: LISINOPRIL 20 MG TAB PO SCH (08:58)
[2025-05-10] MEDS: PANTOPRAZOLE 40 MG TAB PO SCH (08:59)
--- NOTE | 2025-05-10 11:45 | DVHPN2 ---
Reviewed: Care Plan, H&P, Labs, Medications, Previous Orders, Radiology Changes from previous H/P or p: No Changes Eyes: No Pain, No Vision change, No Conjunctivae inflammation, No Eyelid inflammation, No Other, No Redness ENT: No Ear pain, No Ear discharge, No Nose pain, No Nose discharge, No Nose congestion, No Mouth pain, No Mouth swelling, No Throat pain, No Throat swelling, No Other Cardiovascular: Chest Pain; No Palpitations, No Orthopnea, No Paroxysmal Noc. Dyspnea, No Edema, No Lt Headedness, No Other Respiratory: No Cough, No Dry, No Shortness of breath, No SOB with excertion, No Wheezing, No Hemoptysis, No Pleuritic Pain, No Sputum, No Other Gastrointestinal: No Nausea, No Vomiting, No Abdominal Pain, No Diarrhea; C onstipation; No Melena, No Hematochezia, No Other Genitourinary: No Dysuria, No Frequency, No Incontinence, No Hematuria, No Retention, No Other Musculoskeletal: No other, No neck pain, No shoulder pain, No arm pain, No back pain, No hand pain, No leg pain, No foot pain Skin: No Rash, No Lesions, No Jaundice, No Bruising, No Other Objective Vitals Vital Signs Date Time Temp Pulse Resp B/P (MAP) Pulse Ox O2 Delivery O2 Flow Rate FiO2 05/10/25 09:00 97.9 90 18 150/92 (111) 98 97.9 05/10/25 07:30 Room Air* 0 21 Intake/Output Intake and Output 05/10/25 07:00 Intake Total 240 ml Balance 240 ml Intake Oral 240 ml # Voids 3 Medications Current Medications Medications Dose Ordered Sig/Radha Route Start Time Stop Time Status Last Admin Dose Admin Docusate Sodium 100 mg BIDPRN PRN PO 05/09/25 09:45 Acetaminophen/ Hydrocodone Bitart 1 tab Q4HP PRN PO 05/09/25 09:45 Morphine Sulfate 2 mg Q4HPRN PRN IV 05/09/25 09:45 Nitroglycerin 0.4 mg Q5MINP PRN SL 05/09/25 09:45 Morphine Sulfate 2 mg Q30M PRN IV 05/09/25 09:45 Folic Acid 1 mg/ Multivitamins 10 ml/Magnesium Sulfate 8 meq/ Thiamine HCl 100 mg/Dextrose 1,013.2 ml @ 125.001 mls/hr DAILY@1800 INJ 05/09/25 18:00 05/10/25 00:02 125.001 MLS/HR Amlodipine Besylate 5 mg DAILY PO 05/10/25 10:00 05/10/25 08:58 5 MG Lisinopril 40 mg DAILY PO 05/10/25 10:00 05/10/25 08:58 40 MG Pantoprazole Sodium 40 mg DAILY PO 05/10/25 10:00 05/10/25 08:59 40 MG Aspirin 81 mg DAILY PO 05/10/25 10:00 05/10/25 08:59 81 MG Laboratory Results Laboratory Tests 05/10/25 04:27 Chemistry Test 05/10/25 04:27 Albumin 3.8 g/dL (3.2-4.8) Calcium Level 8.7 mg/dL (8.7-10.4) Total Protein 6.4 g/dL (5.7-8.2) LFT Test 05/10/25 04:27 Alanine Aminotransferase (ALT) < 9 U/L (7-40) Alkaline Phosphatase 64 U/L (46-116) Aspartate Amino Transferase (AST) 19 U/L (13-40) Total Bilirubin 0.3 mg/dL (0.2-1.0) Urinalysis Test 05/09/25 23:04 Urine Color Colorless (Yellow) Urine Clarity Clear (Clear) Urine pH 6.5 (5.0-9.0) Urine Specific [place] 1.009 (1.001-1.035) Urine Protein Negative (Negative) Urine Ketones Negative (Negative) Urine Blood Negative /uL (Negative) Urine Nitrite Negative (Negative) Urine Bilirubin Negative (Negative) Urine Urobilinogen Normal mg/dL (Negative) Urine Leukocyte Esterase Negative /uL (Negative) Urine RBC None seen /hpf (0 - 4) Urine Microscopic WBC < 1 /HPF (0-5) Urine Squamous Epithelial Cells Few /hpf (<5) Urine Bacteria None seen /hpf (None Seen) Urine Glucose Normal mg/dL (Normal) Labs and/or images reviewed: Labs reviewed by me, Image(s) reviewed by me Assessment/Plan Assessment/Plan Noncardiac Chest Pain resolved Acute coronary syndrome ruled out normal troponin EKG normal normal BNP chest x- ray normal no signs of CHF Alcoholic withdrawal Hypertension Mild anemia Phencyclidine abuse counseling Plan discussed with: Patient Date of Service: May 10, 2025 Billing Provider: JANEY MARC MD Common Visit Codes: [id number] INP/OBS CARE(HIGH) JANEY MARC MD May 10, 2025 11:45
[2025-05-10] MEDS: HYDROcodone-ACET 5/325MG TAB PO PRN (12:34)
[2025-05-10] MEDS: SODIUM CHLORIDE 0.9% 1,000 ML IV SCH (12:36)
[2025-05-11 01:00] VITALS: BP 125/85; PULSE 74; RESP 16; TEMP 98.2; O2SAT 99
[2025-05-11 05:00] VITALS: BP 119/74; PULSE 60; RESP 17; TEMP 97.9; O2SAT 100
[2025-05-11 07:30] VITALS: PULSE 95; RESP 16; O2SAT 97
[2025-05-11 08:00] VITALS: PULSE 71
--- NOTE | 2025-05-11 08:45 | DVHSR ---
APPROVED REPORT EXAM: Two-dimensional and M-mode echocardiogram with Doppler and color Doppler. Blood Pressure: 144/87 mmHg INDICATION Eval cardiac function RISK FACTORS Height: 50, Weight: 100 DIMENSIONS LVDd (3.8-5.7cm)LA (2D)3.7 (1.9-4.0cm)Aortic Root (2.0-3.7cm) EF (%) (55-70%)Rt. Atrium3.6 (1.9-4.0cm)Asc. Aorta cm Mitral Valve MitralMitral Stenosis E wave0.82m/sMV Mean GR.3mmHg A wave1.30m/sMV Peak GR.6mmHg E/A ratio0.62D MVAcm2 DECEL [id number] 1/2 Ofci415ar IVRTmsDop MVA1.21cm2 Aortic Valve Aortic ValveAortic Stenosis V11.51m/[place] Mean GR.19mmHg V22.99m/[place] Peak GR.36mmHg Other Information Technically limited study due to body habitus, patient position and patient sensitive to touch. Conclusion HEAVILY CALCIFIED MITRAL LEAFLETS WITH DECREASED EXCURESION APPEAR LIKE MITRAL STENOSIS MV AREA 1.21 CM SQUARE HEAVILY CALCIFIED AORTIC LEAFLETS PEAK AORTIC GRADIENT IS 36 AND MEAN IS 19 MM OF HG MODERATE DEGREE LVH AND MODERATE DEGREE LV DIASTOLIC DYSFUNCTION LV EF IS 65% NO EFFUSION SUGGEST: ISAURO
[2025-05-11 09:00] VITALS: BP 100/83; PULSE 94; RESP 18; TEMP 98; O2SAT 97
--- NOTE | 2025-05-11 09:51 | DVHPN2 ---
Reviewed: Care Plan, H&P, Labs, Medications, Previous Orders, Radiology Changes from previous H/P or p: No Changes Eyes: No Pain, No Vision change, No Conjunctivae inflammation, No Eyelid inflammation, No Other, No Redness ENT: No Ear pain, No Ear discharge, No Nose pain, No Nose discharge, No Nose congestion, No Mouth pain, No Mouth swelling, No Throat pain, No Throat swelling, No Other Cardiovascular: Chest Pain; No Palpitations, No Orthopnea, No Paroxysmal Noc. Dyspnea, No Edema, No Lt Headedness, No Other Respiratory: No Cough, No Dry, No Shortness of breath, No SOB with excertion, No Wheezing, No Hemoptysis, No Pleuritic Pain, No Sputum, No Other Gastrointestinal: No Nausea, No Vomiting, No Abdominal Pain, No Diarrhea; C onstipation; No Melena, No Hematochezia, No Other Genitourinary: No Dysuria, No Frequency, No Incontinence, No Hematuria, No Retention, No Other Musculoskeletal: No other, No neck pain, No shoulder pain, No arm pain, No back pain, No hand pain, No leg pain, No foot pain Skin: No Rash, No Lesions, No Jaundice, No Bruising, No Other Objective Vitals Vital Signs Date Time Temp Pulse Resp B/P (MAP) Pulse Ox O2 Delivery O2 Flow Rate FiO2 05/11/25 09:20 100/83 05/11/25 05:00 97.9 60 17 100 97.9 05/10/25 20:00 Room Air* 0 21 Intake/Output Intake and Output 05/11/25 07:00 Intake Total 720 ml Balance 720 ml Intake Oral 720 ml # Voids 7 # Bowel Movements 1 Medications Current Medications Medications Dose Ordered Sig/Ardha Route Start Time Stop Time Status Last Admin Dose Admin Docusate Sodium 100 mg BIDPRN PRN PO 05/09/25 09:45 Acetaminophen/ Hydrocodone Bitart 1 tab Q4HP PRN PO 05/09/25 09:45 05/11/25 09:15 1 TAB Morphine Sulfate 2 mg Q4HPRN PRN IV 05/09/25 09:45 Nitroglycerin 0.4 mg Q5MINP PRN SL 05/09/25 09:45 Morphine Sulfate 2 mg Q30M PRN IV 05/09/25 09:45 Folic Acid 1 mg/ Multivitamins 10 ml/Magnesium Sulfate 8 meq/ Thiamine HCl 100 mg/Dextrose 1,013.2 ml @ 125.001 mls/hr DAILY@1800 INJ 05/09/25 18:00 05/10/25 18:00 125.001 MLS/HR Amlodipine Besylate 5 mg DAILY PO 05/10/25 10:00 05/10/25 08:58 5 MG Lisinopril 40 mg DAILY PO 05/10/25 10:00 05/10/25 08:58 40 MG Pantoprazole Sodium 40 mg DAILY PO 05/10/25 10:00 05/11/25 09:07 40 MG Aspirin 81 mg DAILY PO 05/10/25 10:00 05/11/25 09:09 81 MG Chlordiazepoxide HCl 50 mg Q12H PO 05/11/25 18:00 05/12/25 06:01 Chlordiazepoxide HCl 25 mg Q12H PO 05/12/25 18:00 05/13/25 06:01 Chlordiazepoxide HCl 25 mg Q24H PO 05/14/25 06:00 05/14/25 06:01 Sodium Chloride 1,000 ml @ 150 mls/hr Q6H40M IV 05/10/25 12:00 05/11/25 01:20 150 MLS/HR Laboratory Results Laboratory Tests 05/10/25 04:27 Urinalysis Test 05/09/25 23:04 Urine Color Colorless (Yellow) Urine Clarity Clear (Clear) Urine pH 6.5 (5.0-9.0) Urine Specific [place] 1.009 (1.001-1.035) Urine Protein Negative (Negative) Urine Ketones Negative (Negative) Urine Blood Negative /uL (Negative) Urine Nitrite Negative (Negative) Urine Bilirubin Negative (Negative) Urine Urobilinogen Normal mg/dL (Negative) Urine Leukocyte Esterase Negative /uL (Negative) Urine RBC None seen /hpf (0 - 4) Urine Microscopic WBC < 1 /HPF (0-5) Urine Squamous Epithelial Cells Few /hpf (<5) Urine Bacteria None seen /hpf (None Seen) Urine Glucose Normal mg/dL (Normal) Labs and/or images reviewed: Labs reviewed by me, Image(s) reviewed by me Assessment/Plan Assessment/Plan Noncardiac Chest Pain resolved Acute coronary syndrome ruled out normal troponin EKG normal normal BNP chest x- ray normal no signs of CHF echo 65 percent ejection fraction Alcoholic withdrawal Hypertension Mild anemia Phencyclidine abuse counseling Plan discussed with: Patient My Orders Orders - JANEY MARC MD Procedure Category Date Status Time Chlordiazepoxide Hcl PHA 05/11/25 In Process Capsule (Librium Ca 18:00 Chlordiazepoxide Hcl PHA 05/12/25 In Process Capsule (Librium Ca 18:00 Sodium Chloride 0.9% PHA 05/10/25 In Process 12:00 Chlordiazepoxide Hcl PHA 05/14/25 In Process Capsule (Librium Ca 06:00 Date of Service: May 11, 2025 Billing Provider: JANEY MARC MD Common Visit Codes: [id number] INP/OBS CARE(HIGH) JANEY MARC MD May 11, 2025 09:51
[2025-05-11] MEDS ORDERED: FOLI-119 PO (09:53)
[2025-05-11] MEDS ORDERED: THIA100T13 PO (09:53)
[2025-05-11] MEDS ORDERED: CHL25C PO (09:53)
--- NOTE | 2025-05-11 10:00 | DVHDS2 ---
Discharge Summary Date of Admission May 09, 2025 at 09:36 Date of Discharge: May 11, 2025 Admitting Diagnosis Chest pain Wounds: None Labs/Diagnostic Data: Laboratory Results Test 05/10/25 04:27 05/09/25 23:04 05/09/25 09:55 05/08/25 19:14 White Blood Count 5.8 10^3/uL (4.4-10.8) Red Blood Count 3.55 10^6/uL (4.0-5.20) Hemoglobin 10.0 g/dL (12.2-16.2) Hematocrit 30.8 % (36.0-46.0) Mean Corpuscular Volume 86.6 fL (80.0-100.0) Mean Corpuscular Hemoglobin 28.2 pg (28.0-32.0) Mean Corpuscular Hemoglobin Concent 32.6 g/dL (32.0-36.0) Red Cell Distribution Width 17.6 % (11.8-14.3) Platelet Count 405 10^3/uL (140-450) Mean Platelet Volume 9.4 fL (6.9-10.8) Neutrophils (%) (Auto) 54.1 % (37.0-80.0) Lymphocytes (%) (Auto) 26.0 % (10.0-50.0) Monocytes (%) (Auto) 15.7 % (0.0-12.0) Eosinophils (%) (Auto) 3.5 % (0.0-7.0) Basophils (%) (Auto) 0.7 % (0.0-2.0) Neutrophils # (Auto) 3.2 10 ^3/uL (1.6-8.6) Lymphocytes # (Auto) 1.5 10 ^3/uL (0.4-5.4) Monocytes # (Auto) 0.9 10 ^3/uL (0-1.3) Eosinophils # (Auto) 0.2 10 ^3/uL (0-0.8) Basophils # (Auto) 0 10 ^3/uL (0-0.2) Nucleated Red Blood Cells 0.1 % Sodium Level 140 mmol/L (136-145) Potassium Level 4.5 mmol/L (3.5-5.1) Chloride Level 105 mmol/L (98-107) Carbon Dioxide Level 25 mmol/L (20-31) Anion Gap 10 (5-15) Blood Urea Nitrogen 15 mg/dL (9-23) Creatinine 0.89 mg/dL (0.550-1.02) Glomerular Filtration Rate Calc 75 mL/min (>90) BUN/Creatinine Ratio 16.9 (10.0-20.0) Serum Glucose 90 mg/dL (74-106) Calcium Level 8.7 mg/dL (8.7-10.4) Total Bilirubin 0.3 mg/dL (0.2-1.0) Aspartate Amino Transferase (AST) 19 U/L (13-40) Alanine Aminotransferase (ALT) < 9 U/L (7-40) Alkaline Phosphatase 64 U/L (46-116) Total Protein 6.4 g/dL (5.7-8.2) Albumin 3.8 g/dL (3.2-4.8) Plasma/Serum Blood Alcohol < 3.0 mg/dL (<10) Urine Color Colorless (Yellow) Urine Clarity Clear (Clear) Urine pH 6.5 (5.0-9.0) Urine Specific [place] 1.009 (1.001-1.035) Urine Protein Negative (Negative) Urine Ketones Negative (Negative) Urine Blood Negative /uL (Negative) Urine Nitrite Negative (Negative) Urine Bilirubin Negative (Negative) Urine Urobilinogen Normal mg/dL (Negative) Urine Leukocyte Esterase Negative /uL (Negative) Urine RBC None seen /hpf (0 - 4) Urine Microscopic WBC < 1 /HPF (0-5) Urine Squamous Epithelial Cells Few /hpf (<5) Urine Bacteria None seen /hpf (None Seen) Urine Glucose Normal mg/dL (Normal) Urine Opiates Screen Neg (NEGATIVE) Urine Fentanyl Screen Neg (NEGATIVE) Urine Barbiturates Screen Neg (NEGATIVE) Urine Phencyclidine Screen Pos (NEGATIVE) Urine Amphetamines Screen Neg (NEGATIVE) Urine Benzodiazepines Screen Pos (NEGATIVE) Urine Cocaine Screen Neg (NEGATIVE) Urine Cannabinoids Screen Neg (NEGATIVE) Hemoglobin A1c 5.8 % A1C (<5.7) Triglycerides Level 75 mg/dL (< 150) Cholesterol Level 173 mg/dL (< 200) LDL Cholesterol 101 mg/dL (< 100) HDL Cholesterol 66 mg/dL (40-59) Thyroid Stimulating Hormone (TSH) 1.42 uIU/mL (0.55-4.78) Troponin I High Sensitivity 6 ng/L (</=34) Test 05/08/25 18:30 B-Type Natriuretic Peptide 69.66 pg/mL (0-100) Other Laboratory Tests 05/10/25 04:27 Brief Hx & Hospital Course: 59-year-old female with 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 Treated for alcohol withdrawal with Librium troponin negative EKG normal BNP normal chest x-ray normal no signs of CHF echo 65 percent ejection fraction seen by Cardiology Dr. Parsons no further cardiac workup Patient feels better and being discharged home on Librium and thiamine and folic advised to quit using alcohol and follow up with the primary Dr Consults/Reason for consult Cardiology Dr. Parsons Operations or Procedures Echocardiogram Condition at Discharge: Fair Final Diagnosis/Problems List Noncardiac Chest Pain resolved Acute coronary syndrome ruled out normal troponin EKG normal normal BNP chest x-ray normal no signs of CHF echo 65 percent ejection fraction Alcoholic withdrawal Hypertension Mild anemia Phencyclidine abuse counseling Discharge Disposition: Home Discharge Instruct/Medications Diet: Cardiac 2g Na,low cholest Activity: Light activity Follow Up/Referral: Stop using Phencyclidine Stop drinking alcohol Use Medications as prescribed Follow up with the primary doc Medications: Librium Thiamine Folic acid Transmitted to pharmacy Scheduled Amlodipine Besylate (Amlodipine Besylate), 1 TAB PO DAILY, (Reported) Chlordiazepoxide Hcl (Librium), 25 MG PO TID Folic Acid (Folic Acid), 1 MG PO DAILY Furosemide (Furosemide), 1 TAB PO DAILY, (Reported) Lisinopril (Lisinopril), 1 TAB PO DAILY, (Reported) Thiamine HCl (Thiamine Hydrochloride), 100 MG PO DAILY Miscellaneous Medications Omeprazole (Omeprazole ), (Reported) 35 (Taken taken for discharge summary 35 minute) Discharge Statement: "Patient was advised to return to the ER or call 911 if any headaches, dizziness, shortness of breath, chest pain, abdominal pain, bleeding, fevers, or worsening of medical condition. Patient was counseled about treatment plan, medications, possible side effects, patientverbalized understanding. All questions were answered to the best of my ability. This discharge took greater then 30 minutes in planning, reviewing documentation, counseling the patient, and discussing with other team members." ASSESSMENT ASSESSMENT Hospital Course Uneventful Assessment Noncardiac Chest Pain resolved Acute coronary syndrome ruled out normal troponin EKG normal normal BNP chest x- ray normal no signs of CHF echo 65 percent ejection fraction Alcoholic withdrawal Hypertension Mild anemia Phencyclidine abuse counseling Date of Service: May 11, 2025 Billing Provider: JANEY MARC MD Common Visit Codes: [id number] DISCH DAY >30min JANEY MARC MD May 11, 2025 10:00
[2025-05-11 11:50] VITALS: BP 100/83; PULSE 86; RESP 16; TEMP 98; O2SAT 97
== END 2025-05-11 19:44 | disposition home or self-care (01) | DRG 199 ==
LOC: ER 17:53 → EDBD 17:53 → OVERFLOW 05-09 09:36 → TELE-WESTW 05-09 22:55
PROVIDERS: ADMIT Family Medicine; ATTEND Family Medicine
DX: I16.0 Hypertensive urgency (principal); D64.9 Anemia, unspecified; F10.239 Alcohol dependence with withdrawal, unspecified; F41.9 Anxiety disorder, unspecified; G35 Multiple sclerosis; F16.10 Hallucinogen abuse, uncomplicated; Y90.9 Presence of alcohol in blood, level not specified; Z98.84 Bariatric surgery status; Z82.49 Family history of ischemic heart disease and other diseases of the circulatory system; Z82.3 Family history of stroke
CPT/HCPCS: 36415; 71045; 80048; 80053; 80061; 80307; 80320; 81001; 83036; 83880; 84443; 84484; 85025; 93005; 93306; G0378